=== PATIENT | male | born 2000 | race Two or more races ===

== ENCOUNTER 2024-09-10 20:48 | Emergency (ER) | payer BC, SELFPAY ==
[2024-09-10] VITALS (7 sets, daily range): BP systolic 134–159; BP diastolic 79–100; PULSE 55–104; RESP 14–23; TEMP 36.2; O2SAT 98–100
[2024-09-10 22:11] LABS: Basophils Percent Auto 0.1 % (0.2-1.2); Eosinophils Percent Auto 0.1 % (0-4.4); Hematocrit 43.3 % (42.0-52.0); Hemoglobin 14.4 g/dL (14.0-18.0); Immature Granulocyte Absolute 0.04 K/mm3 (0.00-0.031); Immature Granulocyte Percent A 0.3 % (0-0.5); Lymphocytes Absolute Auto 3.57 K/mm3 (0.9-3.2); Lymphocytes Percent Auto 24.9 % (18.3-44.2); Mean Corpuscular HGB Conc 33.3 g/dl (32-36); Mean Corpuscular Hemoglobin 28.1 pg (26-34); Mean Corpuscular Volume 84.6 fl (80-100); Mean Platelet Volume 10.7 fl (7.4-10.4); Monocytes Absolute Auto 1.1 K/mm3 (0.1-0.6); Monocytes Percent Auto 7.9 % (2.6-8.5); Neutrophils Absolute Auto 9.6 K/mm3 (1.3-6.7); Neutrophils Percent Auto 66.7 % (45.5-73.1); Platelet Count Result 321 k/mm3 (150-375); Red Blood Count 5.12 M/mm3 (4.6-6.20); White Blood Count 14.4 K/mm3 (4.5-10.0)
[2024-09-10 22:22] LABS: Alanine Aminotransferase 24 U/L (6-50); Albumin Level 4.4 g/dL (3.5-5.1); Alkaline Phosphatase 54 U/L (38-126); Anion Gap 11 mmol/L (4-12); Aspartate Amino Transferase 19 U/L (17-59); Bilirubin,Total 0.6 mg/dL (0.2-1.3); Blood Urea Nitrogen 13 mg/dL (9-20); Carbon Dioxide 26 mmol/L (22-30); Chloride 104 mmol/L (98-107); Estimated CRCL calculation 116 ml/min; Estimated Glomerular Filt Rate > 60; Glucose 80 mg/dL (65-110); Potassium 3.5 mmol/L (3.4-5.0); Sodium 141 mmol/L (137-145)
[2024-09-11] VITALS: PULSE 58; RESP 15
[2024-09-11 00:51] VITALS: BP 144/85; PULSE 74; RESP 15; O2SAT 100
--- NOTE | 2024-09-11 00:55 | ED.GENADULT ---
HPI - General Adult General Chief complaint: Shortness of Breath/Dyspnea Stated complaint: SOb, bronchitis Time Seen by Provider: 09/10/24 21:54 History of Present Illness HPI narrative: Patient 24-year-old gentleman presents emergency department with chief complaint of shortness of breath. Patient reports he was recently prescribed prednisone albuterol and Tessalon Perles upper bronchitis the patient states that he had a sharp pain in the right side of his chest reports that it hurts whenever he takes a deep breath. Related Data Allergies Allergy/AdvReac Type Severity Reaction Status Date / Time No Known Allergies Allergy Verified 09/10/24 20:49 Review of Systems Review of Systems: A 10 system review of systems was completed on the patient and is negative except for what is stated in the HPI. Nursing and ancillary documentation was reviewed. Exam Narrative: GENERAL: Well-appearing, well-nourished, and in no acute distress. HEAD: Normocephalic, atraumatic. EYES: PERRLA and EOMI. ENT: Nares clear, no rhinorrhea or epistaxis. Mucous membranes moist. NECK: Supple. CHEST: Clear to auscultation. No respiratory distress. HEART: Regular rate and rhythm. No murmur heard. Normal peripheral pulses. ABDOMEN: Soft, nontender, nondistended, normal active bowel sounds. EXTREMITIES: Normal range of motion. No edema. SKIN: Warm, dry, no rash. NEURO: No focal deficits. Alert and oriented x3. PSYCH: Normal mood and affect. Course Vital Signs Vital signs: Vital Signs Temperature 36.2 C L 09/10/24 20:53 Pulse Rate 63 09/10/24 20:53 Respiratory Rate 14 09/10/24 20:53 Blood Pressure 134/79 09/10/24 20:53 Pulse Oximetry 100 09/10/24 20:53 Temperature 36.2 C L 09/10/24 20:53 Pulse Rate 59 L 09/11/24 01:01 Respiratory Rate 16 09/11/24 01:01 Blood Pressure 123/88 09/11/24 01:01 Pulse Oximetry 100 09/11/24 01:01 Oxygen Delivery Room Air 09/10/24 21:40 Medical Decision Making [facility] Narrative Medical decision making narrative: Differential diagnosis includes pulmonary embolism, pneumonia, bronchitis, pleurisy Laboratory studies were obtained on the patient which were within normal limits CTA chest showed no evidence of pulmonary embolism Vital Signs Vital Signs: Vital Signs Temperature 36.2 C L 09/10/24 20:53 Pulse Rate 63 09/10/24 20:53 Respiratory Rate 14 09/10/24 20:53 Blood Pressure 134/79 09/10/24 20:53 Pulse Oximetry 100 09/10/24 20:53 Temperature 36.2 C L 09/10/24 20:53 Pulse Rate 59 L 09/11/24 01:01 Respiratory Rate 16 09/11/24 01:01 Blood Pressure 123/88 09/11/24 01:01 Pulse Oximetry 100 09/11/24 01:01 Oxygen Delivery Room Air 09/10/24 21:40 Lab Data 09/10/24 22:03 09/10/24 22:03 Labs: Lab Results 09/10/24 Range/Units 22:03 WBC 14.4 H (4.5-10.0) K/mm3 RBC 5.12 (4.6-6.20) M/mm3 Hgb 14.4 (14.0-18.0) g/dL Hct 43.3 (42.0-52.0) % MCV 84.6 (80-100) fl MCH 28.1 (26-34) pg MCHC 33.3 (32-36) g/dl RDW 14.0 (11.5-14.5) % Plt Count 321 (150-375) k/mm3 MPV 10.7 H (7.4-10.4) fl Immature Gran % (Auto) 0.3 (0-0.5) % Neut % (Auto) 66.7 (45.5-73.1) % Lymph % (Auto) 24.9 (18.3-44.2) % [place] % (Auto) 7.9 (2.6-8.5) % Eos % (Auto) 0.1 (0-4.4) % Baso % (Auto) 0.1 L (0.2-1.2) % Lymph # (Auto) 3.57 H (0.9-3.2) K/mm3 [place] # (Auto) 1.1 H (0.1-0.6) K/mm3 Eos # (Auto) 0.0 (0-0.3) K/mm3 Baso # (Auto) 0.0 (0.0-0.1) K/mm3 Abs Immat Gran (auto) 0.04 H (0.00-0.031) K/mm3 Absolute Neuts (auto) 9.6 H (1.3-6.7) K/mm3 Absolute Nucleated RBC 0.000 (0.0-0.012) K/mm3 Nucleated RBC % 0.0 (0.0-0.2) % Sodium 141 (137-145) mmol/L Potassium 3.5 (3.4-5.0) mmol/L Chloride 104 (98-107) mmol/L Carbon Dioxide 26 (22-30) mmol/L Anion Gap 11 (4-12) mmol/L BUN 13 (9-20) mg/dL Creatinine 0.82 (0.7-1.3) mg/dL Estim Creat Clear Calc 116 ml/min Estimated GFR > 60 (59 - ) Glucose 80 (65-110) mg/dL Calcium 9.0 (8.4-10.2) mg/dL Total Bilirubin 0.6 (0.2-1.3) mg/dL AST 19 (17-59) U/L ALT 24 (6-50) U/L Alkaline Phosphatase 54 (38-126) U/L Total Protein 8.0 (6.3-8.2) g/dL Albumin 4.4 (3.5-5.1) g/dL Discharge Plan Discharge Clinical Impression: Acute bronchitis with asthma, Acute chest wall pain Patient Disposition: Home, Self-Care Condition: Stable Instructions: Antibiotic Form, Acute Bronchitis (ED), Chest Wall Pain (ED) Additional Instructions: Please follow-up with your primary care provider please continue taking the steroids inhaler and the cough medication. Patient Language: [place] Follow-up/Referrals: PHYSICIAN NOT ON STAFF,NONSTAFF [Primary Care Provider] - Time of Disposition: 01:30
[2024-09-11 01:01] VITALS: BP 123/88; PULSE 59; RESP 16; O2SAT 100
== END 2024-09-11 01:41 | disposition home or self-care (01) ==
PROVIDERS: Emergency Provider Emergency Medicine
DX: J20.9 Acute bronchitis, unspecified (principal); J45.909 Unspecified asthma, uncomplicated; R07.89 Other chest pain; R00.1 Bradycardia, unspecified
CPT/HCPCS: 36415; 71046; 71275; 80053; 85025; 93005; 99284; Q9967